=== PATIENT | female | born 1975 | race Caucasian/White ===

== ENCOUNTER → 2024-07-25 | Outpatient (CLI) | payer OTHER ==
[~2024-07-25] MED LIST: DOCU10CA PO; MOTR200T44 PO; MULTCAP PO; PERCOCET PO; PROV10TA PO; viactiv OR
== END ==
LOC: M WHC 08:29
PROVIDERS: ATTEND Family Medicine
DX: Z12.31 Encounter for screening mammogram for malignant neoplasm of breast (principal)

== ENCOUNTER 2024-08-13 14:57 | Emergency (ER) | payer OTHER ==
[~2024-08-13] VITALS: Ht 157.5 cm; Wt 78.5 kg
[2024-08-13] MEDS ORDERED: [UNRECOGNIZED DRUG - CODE] PO (15:14)
[2024-08-13] MEDS: ONDANSETRON 4MG 2ML VIAL IV ONE (15:41)
[2024-08-13 15:43] LABS: BASO # 0.1 10^3/uL (0.0-0.2); BASO % 0.7 % (0.0-1.0); EOS # 0.1 10^3/uL (0.0-0.5); EOS % 1.1 % (0.0-3.0); HEMATOCRIT 44.7 % (36.0-47.0); HEMOGLOBIN 15.1 g/dl (12.0-15.5); LYMPH # 2.6 10^3/uL (1.5-5.0); LYMPH % 27.9 % (24.0-44.0); MEAN CORPUSCULAR HEMOGLOBIN 30.5 pg (27.0-33.0); MEAN CORPUSCULAR HGB CONC 33.8 g/dl (32.0-36.5); MEAN CORPUSCULAR VOLUME 90.3 fl (80.0-96.0); MONO # 0.4 10^3/uL (0.0-0.8); MONO % 4.7 % (2.0-8.0); NEUTROPHILS % 65.5 % (36.0-66.0); PLATELET COUNT, AUTOMATED 296 10^3/uL (150-450); RED BLOOD COUNT 4.95 10^6/uL (4.00-5.40); WHITE BLOOD COUNT 9.2 10^3/uL (4.0-10.0)
[2024-08-13] MEDS: KETOROLAC 30 MG/ML 1ML VIAL IV ONE (15:44)
[2024-08-13 16:12] LABS: LIPASE 77 U/L (12-53)
[2024-08-13 16:14] LABS: ALBUMIN 4.1 G/DL (3.2-5.2); ALKALINE PHOSPHATASE 106 U/L (35-104); ALT/SGPT 27 U/L (7.0-40); AST/SGOT 20 U/L (<34); BILIRUBIN,DIRECT 0.1 MG/DL (<0.4); BILIRUBIN,TOTAL 0.4 MG/DL (0.3-1.2); BLOOD UREA NITROGEN 19 MG/DL (9-23); CARBON DIOXIDE LEVEL 24 MMOL/L (20-31); CHLORIDE LEVEL 108 MMOL/L (98-107); CREATININE FOR GFR 0.65 MG/DL (0.55-1.30); GLOMERULAR FILTRATION RATE > 60.0 (>58); GLUCOSE, FASTING 91 MG/DL (60-100); POTASSIUM SERUM 3.9 MMOL/L (3.5-5.1); SODIUM LEVEL 142 MMOL/L (136-145); TOTAL PROTEIN 7.1 G/DL (5.7-8.2)
[2024-08-13] MEDS: MORPHINE 4 MG/ML 1ML VIAL IV ONE (16:24)
[2024-08-13 17:23] VITALS: BP 112/53; TEMP 98; O2SAT 98
== END 2024-08-13 18:06 | disposition home or self-care (01) ==
LOC: M ED 14:57
DX: R10.9 Unspecified abdominal pain (principal)
CPT/HCPCS: 36415; 74176; 76705; 80048; 80076; 81001; 83690; 85025; 96374; 96375; 99284; J1885; J2405